=== PATIENT | male | born 1990 | race Caucasian/White ===

== ENCOUNTER 2016-09-21 07:22 | Emergency (ER) | payer OTHER | END 2016-09-21 10:40 | disposition home or self-care (01) | LOC: ER 07:22 | DX: N21.1 Calculus in urethra (principal); F17.210 Nicotine dependence, cigarettes, uncomplicated; Z79.899 Other long term (current) drug therapy; Z88.1 Allergy status to other antibiotic agents | CPT/HCPCS: 36415; 96361; 96374; 96375; J1885 ==

== ENCOUNTER 2016-12-03 18:31 | Emergency (ER) | payer OTHER | END 2016-12-03 18:49 | disposition home or self-care (01) | LOC: ER 18:31 | DX: K02.9 Dental caries, unspecified (principal); F17.210 Nicotine dependence, cigarettes, uncomplicated; Z88.1 Allergy status to other antibiotic agents; Z88.5 Allergy status to narcotic agent ==